=== PATIENT | male | born 1975 | race African-American/Black ===

== ENCOUNTER 2017-07-28 06:30 | Emergency (ER) | payer OTHER ==
[2017-07-28 07:06] LABS: HEMATOCRIT 40.9 % (42.0-52.0); MCH 30.5 pg (26.0-34.0); MCHC 34.1 g/dL (28.0-37.0); MCV 89.3 fL (80.0-100.0); RBC 4.58 mil/uL (4.50-6.00); RDW 14.1 % (10.5-14.5); WBC 4.3 thou/uL (4.0-11.0)
[2017-07-28 07:15] LABS: CALCIUM 9.4 mg/dL (8.5-10.1); CREATININE 1.3 mg/dL (0.7-1.3); POTASSIUM 3.7 mmol/L (3.5-5.1)
[2017-07-28 08:24] LABS: URINE BLOOD NEGATIVE (Negative); URINE CLARITY CLEAR; URINE COLOR YELLOW; URINE GLUCOSE-RANDOM* NEGATIVE (Negative); URINE KETONES 1+ (Negative); URINE LEUKOCYTES-REFLEX NEGATIVE (Negative); URINE NITRITE-REFLEX NEGATIVE (Negative); URINE PROTEIN (DIPSTICK) NEGATIVE (Negative); URINE SPECIFIC GRAVITY >= 1.030 (1.005-1.035)
[2017-07-28 08:27] LABS: ICTOTEST (BILI CONFIRMATORY) Negative (Negative); URINE BILIRUBIN NEGATIVE (Negative)
[2017-07-28 08:32] LABS: AMP/METHAMP POSITIVE (Negative); BARBITURATES Negative (Negative); BENZODIAZEPINES Negative (Negative); COCAINE Negative (Negative); METHADONE Negative (Negative); OPIATES Negative (Negative); PCP POSITIVE (Negative)
[2017-07-28 10:07] VITALS: BP 000/00
== END 2017-07-28 10:19 | disposition home or self-care (01) ==
LOC: ER 06:30
PROVIDERS: Emergency Medicine
DX: F15.950 Other stimulant use, unspecified with stimulant-induced psychotic disorder with delusions (principal)